=== PATIENT | female | born 2000 | race Caucasian/White ===

== ENCOUNTER 2022-01-13 12:19 | Emergency (ER) | payer OTHER ==
[~2022-01-13] VITALS: Ht 157.5 cm; Wt 90.9 kg
[2022-01-13 12:38] LABS: COVID AG,FIA SOURCE NASAL SWAB
[2022-01-13 12:51] LABS: INFLUENZA TYPE A NEGATIVE FOR TYPE A (NEGATIVE); INFLUENZA TYPE B NEGATIVE FOR TYPE B (NEGATIVE)
[2022-01-13 15:51] VITALS: BP 110/60
== END 2022-01-13 16:10 | disposition home or self-care (01) ==
LOC: EMS 12:36
DX: H66.93 Otitis media, unspecified, bilateral (principal); Z20.822 Contact with and (suspected) exposure to COVID-19
CPT/HCPCS: 87804; 99283